=== PATIENT | male | born 1970 | race Caucasian/White ===

== ENCOUNTER 2020-01-26 19:30 | Emergency (ER) | payer MEDICARE, MEDICAID ==
[~2020-01-26] VITALS: Ht 177.8 cm; Wt 108.9 kg
--- NOTE | 2020-01-26 19:30 | NUR ---
ED Nurse Note: pt brought in by devin Jackson from sober living facility for manic episode x3days. per ems, pt requested to be evaluated for psych facility admission. denies any other complaints. pt was picked up from [address] [place] [address] per ems. Pt does not wish to be placed on voluntary hold at this time and wants to be medically evaluated only. ermd at bedside, vss, nad, aaox3, ambulatory. blood and urine collected and sent to lab. pt on monitor and on gown.
[2020-01-26] MEDS ORDERED: LORazepam Inj 2mg/ml 1ml IV ONE ×2 (20:00→21:15)
--- NOTE | 2020-01-26 20:16 | Emergency Room Report ---
History of Present Illness General Chief Complaint: Behavioral Complaint Present Illness HPI Disclaimer: Please note that this report is being documented using DRAGON technology. This can lead to erroneous entry secondary to incorrect interpretation by the dictating instrument. HPI: 49-year-old male presents for michelle. Patient has a history of bipolar michelle and states he has not slept in 3 days. He feels he is in a manic episode. He denies any nausea vomiting chest pain shortness of breath or fever. Brought in by EMS from the street. Patient denies any suicidal or homicidal ideation. Patient reports that he snorts Wellbutrin. PMH: Bipolar disorder PSH: Reviewed Social Hx: Smokes cigarettes, denies illicit drug use (Sonny Falk M.D.) Allergies: Coded Allergies: No Known Allergies (Unverified , 01/26/20) COVID-19 Screening Contact w/high risk pt: No Recent Travel to affected area: No Experienced COVID-19 symptoms?: No COVID-19 Testing performed SUPERVISOR BRINE: No (Sonny Falk M.D.) Patient History Reviewed Nursing Documentation: PMH: Agreed; PSxH: Agreed (Sonny Falk M.D.) Nursing Documentation-PMH Hx Hypertension: Yes History Of Psychiatric Problem: Yes - manic disorder (Sonny Falk M.D.) Review of Systems All Other Systems: negative except mentioned in HPI (Sonny Falk M.D.) Physical Exam Vital Signs Date Time Temp Pulse Resp B/P (MAP) Pulse Ox O2 Delivery O2 Flow Rate FiO2 01/26/20 19:25 98.6 133 20 148/111 (123) 99 Room Air Sp02 EP Interpretation: reviewed, normal General Appearance: well appearing, other - Poorly groomed, pressured speech Head: normocephalic, atraumatic Eyes: bilateral eye PERRL, bilateral eye EOMI ENT: hearing grossly normal, moist mucus membranes Neck: full range of motion, supple Respiratory: lungs clear, normal breath sounds, no rhonchi, no respiratory distress, no retraction, no wheezing Cardiovascular #1: normal peripheral pulses, no murmur, tachycardia - Tachycardic with regular rhythm Gastrointestinal: non tender, soft, non-distended, no guarding Neurologic: alert, oriented x3, no focal defects Psychiatric: other - No suicidal or homicidal ideation, patient with pressured speech, flight of ideas Skin: normal color, warm/dry (Sonny Falk M.D.) Medical Decision Making Diagnostic Impression: Primary Impression: Michelle ER Course MDM:patient presented with what appeared to be a manic episode. He has a history of bipolar disorder. He has not slept in 3 days. My differential diagnosis included but not limited to bipolar michelle, substance abuse, dehydration to name a few. Clinical course-patient did appear manic on exam with pressured speech, flight of ideas. Multiple doses of Ativan were given however patient still remained manic. He was given further medications. My goal was to have patient sleep and be able to be reassessed by oncoming physician in the morning. Labs - Laboratory Tests Test 01/26/20 20:00 White Blood Count 10.0 K/UL (4.8-10.8) Red Blood Count 4.82 M/UL (4.70-6.10) Hemoglobin 15.2 G/DL (14.2-18.0) Hematocrit 46.5 % (42.0-52.0) Mean Corpuscular Volume 96 FL (80-99) Mean Corpuscular Hemoglobin 31.5 PG (27.0-31.0) H Mean Corpuscular Hemoglobin Concent 32.6 G/DL (32.0-36.0) Red Cell Distribution Width 12.7 % (11.6-14.8) Platelet Count 395 K/UL (150-450) Mean Platelet Volume 7.3 FL (6.5-10.1) Neutrophils (%) (Auto) 74.9 % (45.0-75.0) Lymphocytes (%) (Auto) 16.3 % (20.0-45.0) L Monocytes (%) (Auto) 7.5 % (1.0-10.0) Eosinophils (%) (Auto) 0.6 % (0.0-3.0) Basophils (%) (Auto) 0.7 % (0.0-2.0) Urine Color Yellow Urine Appearance Cloudy Urine pH 5 (4.5-8.0) Urine Specific [place] 1.030 (1.005-1.035) Urine Protein 3+ (NEGATIVE) H Urine Glucose (UA) Negative (NEGATIVE) Urine Ketones 1+ (NEGATIVE) H Urine Blood 1+ (NEGATIVE) H Urine Nitrite Negative (NEGATIVE) Urine Bilirubin Negative (NEGATIVE) Urine Urobilinogen 1 MG/DL (0.0-1.0) H Urine Leukocyte Esterase 1+ (NEGATIVE) H Urine RBC 2-4 /HPF (0 - 0) H Urine WBC 5-10 /HPF (0 - 0) H Urine Squamous Epithelial Cells Few /LPF (NONE/OCC) Urine Calcium Oxalate Crystals Many /LPF (NONE) Urine Bacteria Few /HPF (NONE) Urine Granular Casts 2-4 /LPF (NONE) H Sodium Level 148 MMOL/L (136-145) H Potassium Level 4.4 MMOL/L (3.5-5.1) Chloride Level 111 MMOL/L (98-107) H Carbon Dioxide Level 28 MMOL/L (21-32) Anion Gap 9 mmol/L (5-15) Blood Urea Nitrogen 30 mg/dL (7-18) H Creatinine 1.9 MG/DL (0.55-1.30) H Estimated Glomerular Filtration Rate 38.2 mL/min (>60) Glucose Level 123 MG/DL (74-106) H Calcium Level 9.5 MG/DL (8.5-10.1) Total Bilirubin 0.2 MG/DL (0.2-1.0) Aspartate Amino Transferase (AST) 56 U/L (15-37) H Alanine Aminotransferase (ALT) 39 U/L (12-78) Alkaline Phosphatase 123 U/L (46-116) H Total Protein 8.1 G/DL (6.4-8.2) Albumin 4.3 G/DL (3.4-5.0) Globulin 3.8 g/dL Albumin/Globulin Ratio 1.1 (1.0-2.7) Salicylates Level 1.4 ug/mL (2.8-20) L Urine Opiates Screen Negative (NEGATIVE) Acetaminophen Level < 2 MCG/ML (10-30) L Urine Barbiturates Screen Negative (NEGATIVE) Phencyclidine (PCP) Screen Negative (NEGATIVE) Urine Amphetamines Screen Negative (NEGATIVE) Urine Benzodiazepines Screen Negative (NEGATIVE) Urine Cocaine Screen Negative (NEGATIVE) Urine Marijuana (THC) Screen Negative (NEGATIVE) Serum Alcohol < 3 mg/dL Plan-patient signed out to oncoming physician to reassess patient in a.m. Patient was not suicidal or homicidal but did appear manic and I do believe he would benefit from overnight observation and sleep (Sonny Falk M.D.) ER Course Assumed care of the patient from previous provider approximately 10 PM. Briefly, this is a 49-year-old male presenting from sober living facility for evaluation of a manic episode. Has not slept in days. Patient has been medicated and somewhat more cooperative and calm but still has not slept. Labs show signs of dehydration but the patient refused IV fluids. He has been hydrating orally. Tox screen and other labs within normal limits. The patient is medically cleared for voluntary psychiatric evaluation. He has been accepted to [facility]. Will arrange transport. (Roger Espinoza MD) Last Vital Signs Date Time Temp Pulse Resp B/P (MAP) Pulse Ox O2 Delivery O2 Flow Rate FiO2 01/26/20 19:25 98.6 133 20 148/111 (123) 99 Room Air Status: improved (Sonny Falk M.D.) Disposition: SHORT-TERM HOSP Condition: Stable Referrals: NOT CHOSEN IPA/,REFERRING (PCP) Sonny Falk M.D. Jan 26, 2020 20:16 Roger Espinoza MD Jan 26, 2020 23:28
[2020-01-26 20:24] VITALS: BP 137/98
[2020-01-26 21:19] LABS: APPEARANCE,URINE CLOUDY; BILIRUBIN, URINE NEGATIVE (NEGATIVE); GLUCOSE, URINE (UA) NEGATIVE (NEGATIVE); KETONES,URINE 1+ (NEGATIVE); LEUKOCYTE ESTERASE ,URINE 1+ (NEGATIVE); NITRITE,URINE NEGATIVE (NEGATIVE); PH,URINE 5 (4.5-8.0); PROTEIN,URINE 3+ (NEGATIVE); UROBILINOGEN,URINE 1 MG/DL (0.0-1.0)
[2020-01-26 21:21] LABS: ANION GAP 9 mmol/L (5-15); BLOOD UREA NITROGEN 30 mg/dL (7-18); CALCIUM 9.5 MG/DL (8.5-10.1); CARBON DIOXIDE 28 MMOL/L (21-32); CHLORIDE 111 MMOL/L (98-107); CREATININE 1.9 MG/DL (0.55-1.30); POTASSIUM 4.4 MMOL/L (3.5-5.1); SODIUM 148 MMOL/L (136-145)
[2020-01-26 21:26] LABS: ALANINE AMINOTRANSFERASE 39 U/L (12-78); ALBUMIN 4.3 G/DL (3.4-5.0); ALBUMIN/GLOBULIN RATIO 1.1 (1.0-2.7); ALKALINE PHOSPHATASE 123 U/L (46-116); ASPARTATE AMINO TRANSFERASE 56 U/L (15-37); BILIRUBIN,TOTAL 0.2 MG/DL (0.2-1.0)
[2020-01-26 21:27] LABS: COLOR,URINE YELLOW
[2020-01-26 21:28] LABS: BASOPHILS % (AUTO) 0.7 % (0.0-2.0); EOSINOPHILS % (AUTO) 0.6 % (0.0-3.0); HEMATOCRIT 46.5 % (42.0-52.0); HEMOGLOBIN 15.2 G/DL (14.2-18.0); LYMPHOCYTES % (AUTO) 16.3 % (20.0-45.0); MEAN CORPUSCULAR VOLUME 96 FL (80-99); MONOCYTES % (AUTO) 7.5 % (1.0-10.0); NEUTROPHILS % (AUTO) 74.9 % (45.0-75.0); PLATELET COUNT 395 K/UL (150-450); RED BLOOD COUNT 4.82 M/UL (4.70-6.10); RED CELL DISTRIBUTION WIDTH 12.7 % (11.6-14.8)
--- NOTE | 2020-01-26 21:52 | NUR ---
ED Nurse Note: Recieved pt from bed 3, pt in bed awake and alert, here from assited living facility for manic psychosis, pt is resting quietly in bed, not on hold, will resume care as ordered.
--- NOTE | 2020-01-26 21:53 | NUR ---
ED Nurse Note: Previous note [id number] done by MICHELLE Colmenares, error in computer log on.
[2020-01-26] MEDS ORDERED: Haloperidol 5mg/ml Inj IM ONE (22:00)
[2020-01-26] MEDS ORDERED: DiphenhydrAMINE 50mg/ml Inj IM ONE (22:00)
--- NOTE | 2020-01-26 22:00 | NUR ---
ED Nurse Note: pt removed iv.
--- NOTE | 2020-01-26 22:05 | NUR ---
ED Nurse Note: Recieved report from Praful Del Cid RN, pt has med orderd, given, pt is speaking very fast and constantly, changing conversation topics in midle of conversation, asking for food, given sandwich and juice, pt does appear more calm but remains manic, will monitor for med effectiveness, pt is not on hold. pt denies suicidal or homicidal ideations and denies having any hallucinations. pt is in close observation of nurse constantly.
--- NOTE | 2020-01-26 22:30 | NUR ---
ED Nurse Note: Recieved pt with no IV line access, informed by Deni that pt pulled out line, pt refuses another, informed and order for fluids d/c. pt drinking well and tolerting fluids.
--- NOTE | 2020-01-26 23:20 | NUR ---
ED Nurse Note: Pt continues to be very agitated and restless, does appear sleepy, eyes red and pt slower response and talking slower but will not lay down, pt ambulating through department, talking to himself in room, is eating and drinking and tolerating well, lights dimmed and pt given warm blankets, still gets out of bed soon as nurse is not present and walking around, pt states he does not want to go home, many attempts being made to calm pt, unsuccessful, md is aware and attempting also.
[2020-01-27] VITALS: BP 140/85
--- NOTE | 2020-01-27 00:40 | NUR ---
ED Nurse Note: Pt in bed sleeping, remains in constant observation by staff, no sob or labored breathing or any distress noted, will continue to monitor while asessing placement options.
--- NOTE | 2020-01-27 03:30 | NUR ---
ED Nurse Note: Placed call to [facility] at [phone], report given to MICHELLE levine for pt transport, pt continues to rest quietly in bed, sleeping, nad noted, waiting for ambulance.
[2020-01-27 03:50] VITALS: BP 142/90
[2020-01-27 04:00] VITALS: BP 142/90
--- NOTE | 2020-01-27 04:00 | NUR ---
ER DISCHARGE NOTE: Patient is cleared to be discharged per ERMD to psych facility, pt is on room air, with stable vital signs. [facility] has arrived fo rpt transport, pt awakens for transport, nad noted, denies pain, no sob or labored breathing noted, pt has all personal belongings, pt meds given to driver/guide to give to nurse, nad noted during pt transport.
== END 2020-01-27 04:00 | disposition short-term general hospital (02) ==
LOC: EDBD 19:30 → EMR 20:03
DX: F30.9 Manic episode, unspecified (principal); F31.9 Bipolar disorder, unspecified; I10 Essential (primary) hypertension; F17.200 Nicotine dependence, unspecified, uncomplicated; R00.0 Tachycardia, unspecified
CPT/HCPCS: 36415; 80053; 80307; 81003; 85025; 96361; 96372; 96374; 96376; 99284; G0480; J1200; J1630; J7030